=== PATIENT | female | born 1960 | race Caucasian/White ===

== ENCOUNTER → 2024-11-09 13:55 | Outpatient (CLI) | payer BC, SELFPAY ==
--- NOTE | 2024-11-22 18:56 | DI.NM.S_ITS ---
DATE OF SERVICE: 11/09/2024 NUCLEAR CARDIOLOGY MYOCARDIAL PERFUSION STUDY PROCEDURE: Exercise treadmill stress and rest myocardial perfusion imaging with gating to assess ejection fraction and regional wall motion. ORDERING PROVIDER: MELIZA Tiwari. INDICATIONS: The patient is a 64-year-old female with hyperlipidemia and known coronary artery calcification. CARDIAC STRESS: The patient was able to exercise for 4 minutes 40 seconds on a standard Akbar protocol suggesting moderately reduced exercise capacity with an MECHE of +23%, achieving 7.0 METs. She had a normal heart rate response to exercise, achieving a maximum heart rate of 133 bpm, 85% of her predicted maximum. She had a mild hypertensive blood pressure response with a resting blood pressure 140/92 increasing to a maximum of 200/92. She had moderate exertional dyspnea, but no chest discomfort. Her resting ECG shows sinus rhythm with normal ST segments. There are no obvious ST-segment shifts with stress but considerable motion artifact limits the interpretation. There are no obvious arrhythmias. At 4 minutes 5 seconds of exercise at a heart rate of 133 bpm, 25.9 millicuries of technetium-99m Myoview was injected and she was imaged 15 minutes later using a gated SPECT acquisition protocol. She returned 13 days later and injected with an additional 25.0 millicuries of technetium-99m Myoview and imaged 20 minutes later, again using a gated SPECT acquisition protocol. FINDINGS: 1. Raw Data. There is good myocardial tracer uptake. The lung/heart ratio is normal at 0.25 with a normal TID ratio 1.00. 2. Quantitated gated SPECT: Post-stress ejection fraction is 73% without any focal wall motion abnormality. The resting ejection fraction is 72% with a normal resting end-diastolic volume of 96 mL. 3. Myocardial perfusion imaging: Post-stress supine images show a normal, uniform perfusion pattern without any perfusion defects, supported by normal perfusion imaging in the prone position. The resting images show an identical perfusion pattern without any areas of improvement. IMPRESSION: 1. Normal exercise nuclear perfusion study. 2. No perfusion defects to suggest myocardial ischemia or previous myocardial infarction. 3. Normal left ventricular size and systolic function without focal abnormality. 4. Moderately reduced exercise capacity without angina or obvious ST-segment shifts or arrhythmias although motion artifact limits the interpretation. She had a mild hypertensive blood pressure response. Briana Soriano - RS/fn/[employer] doc#: [id number]/job#: [id number] dd: 11/22/2024 16:58:00 dt: 11/22/2024 17:13:00 DICTATING MD/COPIES TO: Yordan Harmon MD; MELIZA Tiwari COPIES MNE: ANDREINA;
== END ==
LOC: NUCM 13:57
PROVIDERS: PCP Physician Assistant Medical; Referring Provider Physician Assistant Medical; Visit Provider Physician Assistant Medical
DX: I25.10 Atherosclerotic heart disease of native coronary artery without angina pectoris (principal); R03.0 Elevated blood-pressure reading, without diagnosis of hypertension
CPT/HCPCS: 78452; 93017; A9502